=== PATIENT | male | born 1955 | race Caucasian/White ===

== ENCOUNTER → 2021-08-06 | Outpatient (CLI) | payer MEDICARE ==
[2018-04-08 11:14] VITALS: BP 114/75
[~2021-08-06] MED LIST: CLONAZEPAM1 MG PO; FOLI1TAB16 PO; LEVO500T59 PO; PHEN100C PO
--- NOTE | 2021-08-06 14:33 | RAD ---
EXAM: Left axillary sonogram. HISTORY: Lymphadenopathy. TECHNIQUE: Sonographic imaging of the left axilla was performed. COMPARISON: None. FINDINGS: There is no suspicious finding within the left axilla at the site of palpable concern. Spec ifically, there is no evidence of axillary lymphadenopathy. IMPRESSION: Unremarkable left axillary sonogram. Continued clinical follow-up of palpable abnormaliti es is recommended. Negative imaging should not preclude the decision to biopsy a palpable abnormality if there is continuing concern. Electronically signed by: Summer Jane MD (08/06/2021 2:30 PM) [id number]
== END ==
LOC: US 13:54
PROVIDERS: ATTEND Surgery
DX: R59.0 Localized enlarged lymph nodes (principal)
CPT/HCPCS: 76881